=== PATIENT | female | born 1995 | race Caucasian/White ===

== ENCOUNTER 2018-01-30 09:43 | Emergency (ER) | payer SELFPAY ==
[~2018-01-30] VITALS: Ht 160 cm; Wt 70.8 kg
[2018-01-30 10:03] VITALS: Ht 160 cm; Wt 70.8 kg
[2018-01-30 10:44] LABS: microscopic required? YES; urine erythrocyte 1+ (NEGATIVE)
[2018-01-30 11:03] LABS: BASOPHIL % 0.5 % (0-2); PLATELET COUNT 284 x10^3mcL (130-400); RED CELL DISTRIBUTION WIDTH 13.4 % (11.5-14.5)
[2018-01-30 11:57] VITALS: BP 115/74
[2018-01-30 12:36] LABS: CALCIUM 8.8 mg/dL (8.5-10.1); CARBON DIOXIDE 27.1 mmol/L (21-32); CHLORIDE SERUM 101 mmol/L (98-107); CREATININE SERUM 0.5 mg/dL (0.6-1.0); GFR1 > 60 mL/min; GLUCOSE SERUM 90 mg/dL (74-106); POTASSIUM SERUM 3.6 mmol/L (3.5-5.1); SODIUM SERUM 138 mmol/L (136-145)
== END 2018-01-30 13:00 | disposition home or self-care (01) ==
LOC: ED 09:43
PROVIDERS: Emergency Medicine
DX: O20.9 Hemorrhage in early pregnancy, unspecified (principal); Z3A.01 Less than 8 weeks gestation of pregnancy
CPT/HCPCS: 36415